=== PATIENT | female | born 1970 | race Caucasian/White ===

== ENCOUNTER 2022-05-31 17:05 | Emergency (ER) | payer OTHER ==
[2022-05-31] MEDS ORDERED: Ibuprofen 800 MG TAB ONE (18:59)
== END 2022-05-31 21:10 | disposition home or self-care (01) ==
LOC: NAV ERS 17:05
DX: B34.9 Viral infection, unspecified (principal); Z20.822 Contact with and (suspected) exposure to COVID-19; E03.9 Hypothyroidism, unspecified; I10 Essential (primary) hypertension; Z79.899 Other long term (current) drug therapy
CPT/HCPCS: 87081; 87430; 87804; 99283; U0003; U0005